=== PATIENT | female | born 1995 | race Caucasian/White ===

== ENCOUNTER 2024-11-06 19:05 | Emergency (ER) | payer OTHER, SELFPAY ==
[2024-11-06] VITALS (8 sets, daily range): BP systolic 100–130; BP diastolic 58–74; PULSE 71–97; RESP 15–26; O2SAT 95–100
--- NOTE | 2024-11-06 19:15 | DI.RAD_ITS ---
Exam(s) XR SHOULDER RT COMPLETE 2+V EXAM: XR SHOULDER RT COMPLETE 2+V CLINICAL HISTORY: shoulder dislocation. TECHNIQUE: 2D digital imaging was performed of the right shoulder. Three images were obtained. AP, Grashey and Y views were obtained. COMPARISON: No exams were available for comparison FINDINGS: BONES: No acute fracture is present. No bony destructive lesion is seen. JOINTS: There is an anterior shoulder dislocation. SOFT TISSUE: Normal. IMPRESSION: Anterior right shoulder dislocation. DATA REPOSITORY: RADIATION DOSE DELIVERED:
[2024-11-06] MEDS: Ondansetron 4 MG/2 ML VIAL IVP (19:56)
[2024-11-06] MEDS: fentaNYL 100 MCG/2 ML VIAL 50 MCG IVP (19:57)
--- NOTE | 2024-11-06 20:30 | DI.RAD_ITS ---
Exam(s) XR SHOULDER RT COMP POST REDUC EXAM: XR SHOULDER RT COMP POST REDUC CLINICAL HISTORY: POST REDUCTION. TECHNIQUE: 2D digital imaging was performed of the right shoulder. Four images were obtained. AP, Grashey and Y views were obtained. COMPARISON: CR,XR XR SHOULDER RT COMPLETE 2+V from 11/06/2024 FINDINGS: BONES: No acute fracture is present. No bony destructive lesion is seen. There is a depressive irregu larity at the lateral aspect of the humeral head most suggestive of a Hill-Sachs deformity. JOINTS: No dislocation present. There has been successful reduction of the previously seen anterior s houlder dislocation. SOFT TISSUE: Normal. IMPRESSION: 1. Successful reduction of the previously seen shoulder dislocation. 2. Depressive irregularity of the lateral aspect of the humeral head most suggestive of a Hill-Sachs deformity. DATA REPOSITORY: RADIATION DOSE DELIVERED:
[2024-11-06] MEDS: Propofol 200 MG/20 ML VIAL 100 MG IVP (20:32)
--- NOTE | 2024-11-06 20:46 | RESPIRATORY ---
RT present for conscious sedation procedure. Pt. maintained stable vital signs with etCO2 between 35-45 through out the procedure. SpO2 remained above 92% on RA spontaneously without complication to ventilation. MD and RN aware before RT left.
--- NOTE | 2024-11-06 20:50 | ED.GENADUL_ITS ---
Discharge Plan Disposition Patient Disposition: Home Condition: Stable Discharge Details Clinical Impression: Anterior dislocation of right shoulder ED Provider: Nani Fragoso Home Meds and New Rx's Prescriptions: No Action No Known Home Meds Discharge Instructions Instructions: Shoulder Dislocation (DC), Procedural Sedation, Adult ED Additional Instructions: You were given medication, propofol, for the right shoulder reduction, do not consume alcohol or drive a vehicle this evening Your shoulder was placed in a sling with a wraparound belt to keep it secure. Please continue to wear this. You can take it off for showers but be mindful of the range of motion of your shoulder as it could re dislocate You have been referred to orthopedic surgery for follow-up this week for reevaluation Take Motrin as needed for pain. A few doses of additional medication were provided to go home with for severe pain. you can take 1/2 tab every 8 hours as needed for severe pain. HPI General Date/Time Provider Initiated Documentation: 11/06/24 19:19 . Limitations to Documentation: physical limitation . Information obtained by: patient and family . HPI Narrative: 29-year-old female without significant past medical history presents for evaluation of acute right shoulder pain. She reports just prior to arrival she was sliding when she had a bump and got knocked off the sled and landed onto her right shoulder. She did not hit her head, she did not sustain any other injuries during this fall. She reports that pain is severe constant and localized to the right shoulder. Related Data Home Medications ?Medication ?Instructions ?Recorded ?Confirmed Unknown [No Known Home Meds] 11/06/24 11/06/24 Allergies Allergy/AdvReac Type Severity Reaction Status Date / Time acetaminophen Allergy Intermediate Other (See Verified 11/06/24 20:53 Comment) General Stated Complaint: Orthopedic COLLEEN: 4 Exam Narrative Exam Narrative: Review of Systems: All systems reviewed & are unremarkable except as noted in HPI and below Well-developed,crying, appears uncomfortable NCAT PERRL, normal conjunctiva RRR Unlabored respiratory effort, CTAB Nondistended abdomen , soft n/t Right shoulder with dislocation noted, neurovascularly intact distally, no focal neurologic deficits Course Vital Signs Vital signs: Vital Signs Pulse 97 H 11/06/24 19:11 Respiratory Rate 15 11/06/24 19:11 Blood Pressure 116/64 11/06/24 19:11 Pulse Oximetry 95 11/06/24 19:11 Pulse 97 H 11/06/24 19:11 Respiratory Rate 15 11/06/24 19:11 Blood Pressure 116/64 11/06/24 19:11 Blood Pressure Position Sitting 11/06/24 19:11 Pulse Oximetry 95 11/06/24 19:11 Oxygen Delivery Method Room Air 11/06/24 19:11 Oxygen Flow Rate 0 11/06/24 19:11 Pain Level 9 11/06/24 20:00 Procedure Joint Reduction Joint #1: Standard Time Out Performed: Yes Patient Consented: Written Sedation administered by provider performing procedure: Yes Side: right Joint reduction location: shoulder Post-Reduction Neuro Exam: intact and no change Post-Reduction Vascular Exam: intact and no change Post Reduction X-Ray Obtained: Yes Post Reduction X-Ray Results: reduced Splint Applied: Yes Patient Tolerated Procedure: well and no complications Procedural Sedation Indication: Procedural optimization Patient Consented: Written Standard Time Out Performed: Yes Sedation Given: Propofol Amount of sedation(mg): 70 Preparation: monitoring specialist applied, pulse oximeter, capnometry used, supplemental O2 applied, reversal agents at bedside, suction/airway equipment at bedside and IV secured Time of Last PO Intake: 12:00 Medical Decision Making Emergent evaluation of acute right shoulder injury. On initial evaluation there is evidence of shoulder dislocation. No signs or symptoms concerning for other traumatic injuries. There is no open fracture noted in the arm is neurovascularly intact. An x-ray was obtained and confirms the fracture. Patient was consented for sedation and reduction. Propofol used for sedation and the arm was reduced without complication. Placed in sling. Repeat x-ray does demonstrate appropriate reduction. Will discharge with a take-home pack of morphine to use as needed for severe pain. Patient lives in [place] and will need to arrange follow-up there. She was provided a CD of her images. Quality:SDOH Health Related Social Needs: No Data to Display PFSH All Active Problems (Updated 11/06/24 @ 21:05 by Nani Fragoso MD) Anterior dislocation of right shoulder (Acute) Social History Smoking risk assessment performed?: No
[2024-11-06] MEDS: Ibuprofen 600 MG TAB PO (21:01)
[2024-11-06] MEDS: MORPHine IR 15 MG TAB, 4 TABS/BTL PO (21:22)
--- NOTE | 2024-11-06 21:44 | DI.VRAD_ITS ---
PROCEDURE INFORMATION: Exam: XR Right Shoulder Exam date and time: 11/06/2024 8:14 PM Age: 29 years old Clinical indication: Pain; Right; Shoulder dislocation TECHNIQUE: Imaging protocol: Radiologic exam of the right shoulder. Views: 2 or more views. COMPARISON: No relevant prior studies available. FINDINGS: Bones/joints: There is anterior dislocation of the right shoulder joint. No acute fracture is seen. Soft tissues: No gross focal soft tissue abnormality is demonstrated. IMPRESSION: Anterior dislocation of the right shoulder joint. Dictated and Authenticated by: Venu Cobb MD. Orderin Richmond Mccormick MD
--- NOTE | 2024-11-06 21:51 | DI.VRAD_ITS ---
PROCEDURE INFORMATION: Exam: XR Right Shoulder Exam date and time: 11/06/2024 8:49 PM Age: 29 years old Clinical indication: Screening exam; Post reduction shoulder TECHNIQUE: Imaging protocol: Radiologic exam of the right shoulder. Views: 2 or more views. COMPARISON: CR XR SHOULDER RT COMPLETE 2+V 11/06/2024 8:14 PM FINDINGS: Bones/joints: There has been interval reduction of the previously seen right shoulder dislocation. There is irregularity along the superolateral cortex of the humeral head. Otherwise, no acute fracture is seen. Soft tissues: No gross soft tissue abnormality is demonstrated. IMPRESSION: Interval reduction of the previously seen shoulder dislocation. Irregularity along the superolateral cortex of the humeral head. CT imaging through the shoulder is recommended to exclude a Hill-Sachs deformity. Dictated and Authenticated by: Venu Cobb MD. Orderin Richmond Mccormick MD
--- NOTE | 2024-11-10 09:28 | NUR.NOTE ---
Accessed Pt chart to see if an order was sent to [facility]. There was not so I sent the Referral.
== END 2024-11-06 21:37 | disposition home or self-care (01) ==
LOC: ER 22:19
PROVIDERS: Emergency Provider Emergency Medicine
DX: S43.084A Other dislocation of right shoulder joint, initial encounter (principal); W00.0XXA Fall on same level due to ice and snow, initial encounter; Y93.23 Activity, snow (alpine) (downhill) skiing, snowboarding, sledding, tobogganing and snow tubing; Y92.838 Other recreation area as the place of occurrence of the external cause
CPT/HCPCS: 23650; 73030; 96374; 96375; 99152; 99285; 99284; J2405; J2704; J3010